=== PATIENT | female | born 1945 | race Caucasian/White ===

== ENCOUNTER 2017-10-06 14:58 | Outpatient (CLI) | payer MEDICARE | END 2017-10-06 14:59 | disposition home or self-care (01) | LOC: BICMAMMO 14:58 | PROVIDERS: ATTEND Obstetrics & Gynecology | DX: Z12.31 Encounter for screening mammogram for malignant neoplasm of breast (principal) | CPT/HCPCS: 77063; 77067 ==

== ENCOUNTER 2017-10-13 19:03 | Inpatient (IN) | payer MEDICARE ==
[2017-10-13 20:10] LABS: #Eosinphils 0.4 thou/uL (0.0-0.7); #Lymphocytes 1.3 thou/uL (1.20-3.40); #Monocytes 0.4 thou/uL (0.11-0.59); #Neutrophils 2.9 thou/uL (1.40-6.50); %Basophils 0.9 % (0.0-1.0); %Eosinophils 7.1 % (0.0-10.0); %Lymphocytes 25.8 % (21.0-51.0); %Neutrophils 58.2 % (42.0-75.0); Hemoglobin 12.6 g/dL (12.0-16.0); Mean Corpuscular Hemoglobin 30.9 pg (27.0-31.0); Mean Corpuscular Volume 88.3 fL (78.0-98.0); Mean Platelet Volume 6.1 fL (7.4-10.4); Platelet Count 249 thou/uL (130-400); RBC Distribution Width 11.5 % (11.5-14.5); Red Blood Cell (RBC) Count 4.06 mill/uL (4.20-5.40)
[2017-10-13 20:38] LABS: CKMB 1.5 ng/mL (0-6.6); Troponin I 0.011 ng/mL (< 0.028)
--- NOTE | 2017-10-13 20:42 | RAD ---
CHEST ONE VIEW 10/13/17 HISTORY: Bradycardia. COMPARISON: Chest radiograph 2014. FINDINGS: The heart size is enlarged. There is mild ectasia of the distal thoracic aorta, similar. Partially ca lcified breast implants. No pneumothorax or focal air space consolidation. IMPRESSION: No acute intrathoracic abnormality or significant change. POS: [facility]
[2017-10-13 20:43] LABS: ALT (SGPT) 10 U/L (8-55); AST (SGOT) 16 U/L (5-34); Albumin 4.1 g/dL (3.4-4.8); Alkaline Phosphatase 85 U/L (40-150); Anion Gap 15 mmol/L (10-20); BUN (Urea Nitrogen) 17 mg/dL (9.8-20.1); Bilirubin, Total 0.3 mg/dL (0.2-1.2); CK (CPK) 137 U/L (29-168); Calc. Creatinine Clearance 0 mL/min (70-130); Calcium 9.2 mg/dL (7.8-10.44); Carbon Dioxide 25 mmol/L (23-31); Chloride 105 mmol/L (98-107); Estimated GFR-MDRD 64; Glucose 91 mg/dL (83-110); Lipase 36 U/L (8-78); Potassium 3.9 mmol/L (3.5-5.1); Protein, Total 7.1 g/dL (6.0-8.3); Sodium 141 mmol/L (136-145)
[2017-10-13] MEDS ORDERED: Acetaminophen 325 MG TAB PO PRN (22:58)
[2017-10-13] MEDS ORDERED: Ondansetron HCl/PF 4 MG/2 ML Vial IVP PRN (23:40)
[2017-10-13] MEDS ORDERED: Ondansetron ODT 4 MG TAB SL PRN (23:40)
[2017-10-13 23:49] LABS: Troponin I 0.014 ng/mL (< 0.028)
[2017-10-14 01:53] VITALS: BMI 26.5
[2017-10-14 02:25] LABS: #Eosinphils 0.3 thou/uL (0.0-0.7); #Lymphocytes 1.3 thou/uL (1.20-3.40); #Monocytes 0.4 thou/uL (0.11-0.59); #Neutrophils 2.7 thou/uL (1.40-6.50); %Eosinophils 6.7 % (0.0-10.0); %Lymphocytes 27.8 % (21.0-51.0); %Monocytes 7.6 % (0.0-10.0); %Neutrophils 56.9 % (42.0-75.0); Hemoglobin 12.3 g/dL (12.0-16.0); Mean Corpuscular HGB CONC 34.2 g/dL (32.0-36.0); Mean Corpuscular Hemoglobin 30.2 pg (27.0-31.0); Mean Corpuscular Volume 88.3 fL (78.0-98.0); Mean Platelet Volume 6.2 fL (7.4-10.4); Platelet Count 231 thou/uL (130-400); RBC Distribution Width 11.5 % (11.5-14.5); Red Blood Cell (RBC) Count 4.08 mill/uL (4.20-5.40); White Blood Cell (WBC) Count 4.7 thou/uL (4.8-10.8)
--- NOTE | 2017-10-14 02:25 | HP ---
TIME OF EVALUATION: 10:10 p.m. CODE STATUS: FULL CODE. PRIMARY CARE PHYSICIAN: Dr. Kalia Toro. CHIEF COMPLAINT: "Feeling tired, got a call from the Holter monitor center that my heart rate was low." HISTORY OF PRESENT ILLNESS: This is a 71-year-old female with past medical history of atrial fibrillation, status post ablation, the patient is on anticoagulation, came to the hospital because she had been placed on a Holter monitor by Dr. Erickson, today was her first day, she got a call from the Holter monitor center, telling her that her heart rate was in the low 50s. For that reason, she was advised to come to the hospital by Dr. Erickson's PA. The patient was met at bedside, and she reported associated weakness, no other significant symptoms. No clear triggers, no alleviating factors. She has stated that in the past they had been evaluated in the possibility of having the pacemaker placed. The patient reported the symptoms were mild to moderate. REVIEW OF SYSTEMS: Constitutional: No fever, no chills. She did report generalized weakness. Respiratory: No cough, sputum production, shortness of breath. Cardiovascular: No chest pain, palpitations, shortness of breath. Gastrointestinal: No nausea or vomiting, no diarrhea, no abdominal pain.: Central Nervous Systems: No dizziness, headache or feeling lightheaded. Genitourinary: No burning on urination. Extremities: No leg swelling. All other systems were reviewed and negative except for the findings mentioned above. PAST MEDICAL HISTORY: Atrial fibrillation, status post ablation, hyperlipidemia. PAST SURGICAL HISTORY: Bilateral knee, right heel surgery x2, appendectomy, C- sections. PSYCHIATRIC HISTORY: No previous psychiatric history. SOCIAL HISTORY: No alcohol, no drugs, no smoking history. FAMILY HISTORY: The patient reportedly mother with an AAA, father from nephritis. ALLERGIES: No known drug allergies. REPORTED MEDICATIONS: Xarelto 20 mg once a day, amlodipine 5 mg once a day, Zetia 10 mg once a day. PHYSICAL EXAMINATION: VITAL SIGNS: On presentation, blood pressure 129/77, heart rate 65, respiratory rate was 16, temperature was 99.7, pain was 0, oxygen saturation was 95. GENERAL APPEARANCE: Patient is alert, oriented, no acute distress. HEENT: Eyes, normal conjunctivae. Moist oral mucosa. Eyes anicteric. NECK: No JVD. RESPIRATORY: Bilateral air entry. No rales, no wheezing. Symmetric expansion. CARDIOVASCULAR: Normal rate, regular rhythm. No murmurs, no gallop. No edema. ABDOMEN: Soft, normal bowel sounds. MUSCULOSKELETAL: Baseline range of motion and strength. No tenderness. SKIN: Warm and intact. No pallor, no rash, no redness. NEUROLOGIC: Baseline sensorium. No evidence of any new focal weakness. Baseline speech. Cranial nerves seem to be intact. PSYCHIATRIC: Good mood. No anxiety. Oriented, optimal, judgment. LABORATORY DATA: Reviewed. The patient has a white count of 5.0, hemoglobin 12.6, MCV 88, platelet count 249,000. Sodium 141, potassium 3.9, carbon dioxide 25, anion gap 15, BUN 17, creatinine 0.8, GFR 64. LFTs were normal. Troponin was normal. X-ray was reviewed. The patient had no acute intrathoracic abnormalities or significant change. EKG was discussed with former physician from ER showed first degree AV block at a rate of 69, nonspecific ST segment abnormalities, prolonged QTC. ASSESSMENT AND PLAN: The patient was placed in the hospital with following medical condition. 1. Sinus bradycardia, as reported in the Holter monitor, in the hospital, heart rate has been normal, Dr. Erickson has been notified, we will follow, the patient reported that she has had in the past to have a pacemaker, we will defer any decision on this to Dr. Erickson. The patient was on anticoagulation that we will continue for now. 2. History of atrial fibrillation with status post ablation, rate controlled, rhythm is sinus, we will monitor, no need for any further intervention at this point. Anticoagulation. 3. Hyperlipidemia, low cholesterol diet is advised. 4. Deep venous thrombosis prophylaxis, patient is on chronic anticoagulation. [facility]
[2017-10-14 02:42] LABS: Anion Gap 10 mmol/L (10-20); BUN (Urea Nitrogen) 16 mg/dL (9.8-20.1); Calc. Creatinine Clearance 79 mL/min (70-130); Calcium 9.3 mg/dL (7.8-10.44); Carbon Dioxide 27 mmol/L (23-31); Chloride 108 mmol/L (98-107); Estimated GFR-MDRD 72; Glucose 97 mg/dL (83-110); Sodium 141 mmol/L (136-145)
[2017-10-14 02:43] LABS: Troponin I Less than 0.010 ng/mL (< 0.028)
[2017-10-14] MEDS ORDERED: Aspirin 325 mg Enteric Coated Tablet PO SCH (09:00)
[2017-10-14] MEDS ORDERED: Rivaroxaban 10 MG TAB PO SCH (09:00)
[2017-10-14] MEDS: Aspirin 325 mg Enteric Coated Tablet PO SCH (10:24)
[2017-10-14] MEDS ORDERED: DOBUTamine 500 mg/250 ml 250 ML IVPB SCH (17:30)
[2017-10-14] MEDS ORDERED: Communication Order-Pharmacy FS SCH (17:30)
--- NOTE | 2017-10-14 17:45 | PDOC.PN ---
- Subjective Encounter Start Date: 10/14/17 Encounter Start Time: 17:45 Subjective: f/u for symptomatic bradycardia and heart block with pauses. Not currently -: symptomatic though tele monitor showing pauses up to 3+ secs. - Objective MAR Reviewed: Yes Vital Signs & Weight: Vital Signs (12 hours) Temp Pulse Resp BP Pulse Ox 10/14/17 16:12 97.7 F 62 16 133/72 10/14/17 11:45 98.2 F 65 16 139/73 97 10/14/17 08:15 98.7 F 58 L 16 97 10/14/17 07:51 98.7 F 58 L 16 131/91 H 97 Weight Weight 169 lb 4.8 oz I&O: 10/13/17 10/14/17 10/15/17 06:59 06:59 06:59 Intake Total 720 Output Total 400 Balance 320 Result Diagrams: 10/14/17 02:11 10/14/17 02:11 Additional Labs: Laboratory Tests 10/13/17 10/13/17 10/13/17 20:01 20:01 23:14 Troponin I 0.011 0.014 B-Natriuretic Peptide 57.7 10/14/17 02:11 Troponin I Less than 0.010 B-Natriuretic Peptide Radiology Reviewed by me: Yes (PCXR - no acute process) EKG Reviewed by me: Yes (Tele - SR with pauses 2-3 seconds) Phys Exam - Physical Examination Constitutional: NAD HEENT: PERRLA, sclera anicteric, oral pharynx no lesions Neck: no nodes, no JVD, supple, full ROM Respiratory: no wheezing, no rales, no rhonchi, clear to auscultation bilateral Gastrointestinal: soft, non-tender, no distention, positive bowel sounds Musculoskeletal: no edema, pulses present Neurological: non-focal, normal sensation, moves all 4 limbs Psychiatric: normal affect, A&O x 3 Skin: no rash, normal turgor, cap refill <2 seconds Dx/Plan (1) Symptomatic bradycardia Code(s): R00.1 - BRADYCARDIA, UNSPECIFIED Status: Acute Comment: Hold all AV blocking agents, B-blockers, plan for PM placement in am, trial Dobutamine (2) Heart block Code(s): I45.9 - CONDUCTION DISORDER, UNSPECIFIED Status: Chronic Comment: See above (3) Chronic anticoagulation Code(s): Z79.01 - ELECTRICAL LABORATORY TECHNICIAN (CURRENT) USE OF ANTICOAGULANTS Status: Chronic Comment: Xarelto on hold pending PM placement and L heart cath (4) HTN (hypertension) Code(s): I10 - ESSENTIAL (PRIMARY) HYPERTENSION Status: Chronic Qualifiers: Hypertension type: essential hypertension Qualified Code(s): I10 - Essential (primary) hypertension Comment: Stable currently - Plan DVT proph w/SCDs Continue supportive mgmt -: Trial Dobutamine gtt -: Hold all B-blockers, AV antonio blocking agents -: Hold Xarelto -: 2D echo pending * PM placement in am
[2017-10-14] MEDS ORDERED: CEFAZOLIN/Water 2 GM/20 ML SYRINGE SLOW IVP SCH (18:15)
[2017-10-14] MEDS: Ezetimibe 10 MG TAB PO SCH (20:48)
--- NOTE | 2017-10-14 23:01 | CON ---
DATE OF CONSULTATION: 10/14/2017 HISTORY: Keely Renee is a 71-year-old white female who has been evaluated by Dr. Erickson in the past. She was first seen in 2009 and had normal stress test and echo ejection fraction was normal. She had moderate aortic and mitral valve regurgitation. She then presented to the hospital in 09/2013 with feeling of very rapid heartbeat. She went to the gym to work out and her heart rate was 180 beats per minute. She became short of breath and lightheaded with this. She came to the emergency and was given intravenous diltiazem and 15-20 minutes later converted back to sinus rhythm. She also had some pauses up to 4 seconds. She was placed on Xarelto and Cardizem p.o. Echo at that time revealed mild to moderate aortic insufficiency and ejection fraction of 60%-65% . 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 She was discharged in several days later, underwent pulmonary venous isolation and antral ablation for atrial fibrillation. She has not had any recurrence of her atrial fibrillation, although she is maintained on Xarelto. She states that she did have a syncopal episode one year ago, underwent outpatient monitoring apparently without any significant rhythm disturbances being seen. She was going to undergo ankle replacement and preop EKG showed new T-wave inversions in lead 3, V5 and V6, although it is very bad faxed copy. With this abnormality, she was sent back to Dr. Erickson's office. She had a previous Lexiscan Cardiolite test in 12/2016 which was normal without evidence of ischemia. However, with this new EKG finding, there was concern of ischemia. It was also noted that she would have sinus arrest with junctional escape beat. She was sent home on a monitor and there have been several episodes recorded where she would have pauses of over 3 seconds. With these pauses, she was advised to go to the hospital by Dr. Dre Zaldivar's PA. Ms. Renee denies any episodes of chest discomfort. However, she has noted over the last several months that she has been becoming increasingly fatigued. She also will have dyspnea on exertion walking or going up stairs, but she never had that problem previously. She denies any significant lightheaded episodes and only the one episode of syncope 1 year ago. PAST MEDICAL HISTORY: Atrial fibrillation status post ablation in 09/2013, hyperlipidemia, hypertension. OPERATIONS: Bilateral knee replacement, heel surgery x2, appendectomy, C- sections, hand surgery. SOCIAL HISTORY: She does not smoke. She occasionally drinks. FAMILY HISTORY: Mother had an abdominal aortic aneurysm and of rupture. No family history of coronary artery disease. MEDICATIONS: Norvasc 5 mg daily, Zetia 10 mg q.p.m., Xarelto 20 mg daily (last dose was 10/12/2017 in the evening). ALLERGIES: None. REVIEW OF SYSTEMS: Twelve-point review of systems unremarkable. PHYSICAL EXAMINATION: VITAL SIGNS: 139/73, pulse 65. HEENT: PERRL. NECK: Supple. CHEST: Clear. CARDIAC: S1, S2 normal without any S3, S4 or murmurs. ABDOMEN: Normal bowel sounds without tenderness, organomegaly. EXTREMITIES: Revealed no clubbing, cyanosis or edema. NEUROLOGIC: Grossly intact. SKIN: Warm and dry. IMPRESSION: 1. New T-wave inversion on EKG at [facility]. This was not seen on an EKG in our office nor on admission EKG here. She did have a normal Lexiscan Cardiolite in 12/2016. 2. Severe sinus node dysfunction with episodes of sinus arrest with junctional escape beat. She has had pauses of over 3.4 seconds on the monitor here in the hospital. She also had a syncopal episode one year ago. She denies any lightheadedness, but has had increasing fatigue and tiredness. 3. History of atrial fibrillation ablation in 09/2013 without recurrence. 4. Hypertension. 5. Hypercholesterolemia. 6. Aortic insufficiency and mitral regurgitation on echos in the past. PLAN: The situation was discussed with the patient and her daughter. With preoperative evaluation and new EKG changes, it was recommended she undergo cardiac catheterization. Risks of this were discussed including , myocardial infarction, dye reaction, vascular injury, CVA, transfusion, limb loss, renal loss, etc. Also, risk of intervention with PTCA and stent placement were discussed including , myocardial infarction, emergent CABG, restenosis, stent thrombosis, vessel perforation, etc. With long-term use of Xarelto, I would recommend a bare metal stent to minimize the amount of time for triple antiplatelet - anticoagulant therapy. She has never had any gastrointestinal bleeding and does not have any upcoming surgery except for her ankle surgery. If she does not have significant coronary artery disease or if a stent is placed , then the following day, consideration should be given to pacemaker placement. Risks of pacemaker placement were discussed including , infection, bleeding, blood clot formation, pneumothorax, internal bleeding with surgical drainage, reoperation for lead dislodgement, etc. She understands and is agreeable to proceed. [facility]ANY
[2017-10-15] MEDS: Aspirin 325 mg Enteric Coated Tablet PO SCH (05:30)
[2017-10-15] MEDS ORDERED: Sodium Chloride 0.9% 1,000 ML IV SCH ×2 (06:00→12:24)
--- NOTE | 2017-10-15 07:44 | EKG ---
Test Reason : PAUSES Blood Pressure : / mmHG Vent. Rate : 047 BPM Atrial Rate : 047 BPM P-R Int : 236 ms QRS Dur : 096 ms QT Int : 494 ms P-R-T Axes : 034 -08 076 degrees QTc Int : 437 ms Sinus bradycardia with marked sinus arrhythmia with 1st degree A-V block and sinus arrest Nonspecific ST and T wave abnormality Abnormal ECG When compared with ECG of 13-OCT-2017 19:09, (Unconfirmed) QT has shortened Confirmed by DR. Flory CAMPOVERDE ([id number]) on 10/15/2017 7:44:01 AM Referred By: CRICKET Confirmed By:DR. Flory CAMPOVERDE
[2017-10-15] MEDS ORDERED: Diltiazem HCl 125 MG, Admixture Fee 1 EACH in Sodium Chloride 0.9% 100 ML IVPB SCH (09:30)
[2017-10-15] MEDS ORDERED: Heparin 10,000 UNITS/1 ML VIAL ONE (09:46)
[2017-10-15] MEDS ORDERED: Lidocaine 1% (PF) 30 ML VIAL ONE ×3 (09:46→11:16)
[2017-10-15] MEDS ORDERED: Fentanyl 100 MCG/2 ML VIAL ONE ×2 (10:17→10:54)
[2017-10-15] MEDS ORDERED: Midazolam HCl 2 mg/2 ml Vial ONE (10:17)
[2017-10-15] MEDS ORDERED: Metoprolol Tartrate 5 MG/5 ML VIAL ONE (10:52)
[2017-10-15] MEDS ORDERED: PROPOFOL 20 ML ONE (10:54)
[2017-10-15] MEDS ORDERED: CEFAZOLIN 1 GM VIAL ONE (11:03)
[2017-10-15] MEDS ORDERED: Gentamicin 80 MG/2 ML VIAL ONE (11:03)
[2017-10-15] MEDS ORDERED: Nitroglycerin 0.4 MG TAB (25 Tab Bottle) SL PRN (12:23)
[2017-10-15] MEDS ORDERED: traMADol HCl 50 MG TAB PO PRN (12:23)
[2017-10-15] MEDS ORDERED: Acetaminophen/Codeine 30-300mg Tablet PO PRN ×2 (12:23)
[2017-10-15] MEDS ORDERED: Sodium Chloride 0.9% 200 ML IV SCH (12:30)
[2017-10-15] MEDS ORDERED: Iopamidol 370 76% 100 ML VIAL ONE (13:02)
--- NOTE | 2017-10-15 13:34 | RAD ---
SINGLE VIEW CHEST: Date: 10/15/17 COMPARISON: 10/13/17. HISTORY: Post cardiac device placement. FINDINGS: Single view of the chest shows a normal sized cardiomediastinal silhouette. There has been interval p lacement of a left subclavian pacemaker with its leads in the right atrium and ventricle. A moderate left pneumothorax is seen. No pleural effusion is present. Patient has calcified bilateral breast implants. IMPRESSION: Interval placement of left-sided pacemaker with moderate left pneumothorax. Dr. Juarez's nurse, Anastacio, notified of findings at 1330 hours on 10/15/17. CODE CR. POS: [facility]
[2017-10-15] MEDS: Cephalexin 250 MG CAP PO SCH ×2 (14:51→19:56)
--- NOTE | 2017-10-15 16:29 | CCL ---
INDICATION: Four and five second sinuses pauses. History of sick sinus syndrome. The patient remained in the offset label rewinder after diagnostic catheterization. The left subclavian area was prepped and draped. 1% lidocaine was infiltrated. A J-wire was placed into the left subclavian vein . Pacemaker pocket was manufactured using blunt and sharp dissection with electrocautery for hemosta sis. Antibiotic solution soaked gauze was placed into the subcutaneous pocket. A second J-wire was inserted. Using peel-away sheaths, the atrial and ventricular leads were inserted. The ventricular lead was advanced to the RV apex and screwed into place. This is then tested and then the atrial kaci d was screwed into the right atrium. At this point, the patient was sedated by Anesthesia and with 100 joules of synchronized cardioversio n, remained in atrial fibrillation. With 200 joules of synchronized cardioversion, she converted to sinus rhythm. Ventricular lead - R-wave 10.6, impedance 658. Threshold 0.3 volts. Right atrial lead P-wave (afte r cardioversion) 4.8, impedance 635, threshold 0.8. The tabs on the suture tie downs were removed a nd both leads were secured in place with two sutures of 0 silk. The subcutaneous pocket was irrigate d after the antibiotic solution soaked gauze was removed. Copious amounts of antibiotic solution wer e used. The leads were then attached to the pacemaker generator and this was placed into the pocket and secured in place with one suture of 0 silk. Incision was then closed using two layers of running 3-0 Vicryl, one layer running 4-0 Vicryl. Dermabond was placed on the incision. The patient tolera tony the procedure well.
--- NOTE | 2017-10-15 16:42 | PDOC.PN ---
- Subjective Encounter Start Date: 10/15/17 Encounter Start Time: 16:30 Subjective: f/u for A-fib RVR and sinus pauses/heart block s/p cardioversion -: and PM placement today. Tele showing SR currently. Feels ok except -: for L shoulder and upper chest pain at PM site. - Objective MAR Reviewed: Yes Vital Signs & Weight: Vital Signs (12 hours) Temp Pulse Resp BP Pulse Ox 10/15/17 14:53 97.6 F 64 16 154/72 H 98 10/15/17 12:56 98.6 F 75 18 142/72 H 94 L 10/15/17 08:09 98.0 F 63 16 135/63 95 Weight Weight 169 lb 4.8 oz I&O: 10/14/17 10/15/17 10/16/17 06:59 06:59 06:59 Intake Total 870 Output Total 1200 Balance -330 Result Diagrams: 10/14/17 02:11 10/14/17 02:11 Additional Labs: Laboratory Tests 10/13/17 10/13/17 10/13/17 20:01 20:01 23:14 Troponin I 0.011 0.014 B-Natriuretic Peptide 57.7 10/14/17 02:11 Troponin I Less than 0.010 B-Natriuretic Peptide Radiology Reviewed by me: Yes (PCXR - mod L-sided pneumothorax) EKG Reviewed by me: Yes (Tele - SR, A-paced) Phys Exam - Physical Examination Constitutional: NAD HEENT: PERRLA, sclera anicteric, oral pharynx no lesions Neck: no nodes, no JVD, supple, full ROM L upper chest with post-surgical changes with PM Respiratory: no wheezing, no rales, no rhonchi, clear to auscultation bilateral S1, S2 Cardiovascular: RRR, no significant murmur, no rub, gallop Gastrointestinal: soft, non-tender, no distention, positive bowel sounds Musculoskeletal: no edema, pulses present Neurological: non-focal, normal sensation, moves all 4 limbs Psychiatric: normal affect, A&O x 3 Skin: no rash, normal turgor, cap refill <2 seconds Dx/Plan (1) Symptomatic bradycardia Code(s): R00.1 - BRADYCARDIA, UNSPECIFIED Status: Acute Comment: Hold all AV blocking agents, B-blockers, plan for PM placement in am, trial Dobutamine, resolved s/p PM placement (2) Heart block Code(s): I45.9 - CONDUCTION DISORDER, UNSPECIFIED Status: Chronic Comment: See above, s/p dual chamber pacemaker placement 10/15/17, continue tele monitoring (3) Chronic anticoagulation Code(s): Z79.01 - CHIEF SUBSTATION OPERATOR (CURRENT) USE OF ANTICOAGULANTS Status: Chronic Comment: Xarelto on hold pending PM placement and L heart cath, resume on (4) Pneumothorax, left Code(s): J93.9 - PNEUMOTHORAX, UNSPECIFIED Status: Acute Comment: s/p PM placement and cardioversion, serial monitoring, serial PCXR, no hypoxia or dyspnea currently, conservative mgmt (5) HTN (hypertension) Code(s): I10 - ESSENTIAL (PRIMARY) HYPERTENSION Status: Chronic Qualifiers: Hypertension type: essential hypertension Qualified Code(s): I10 - Essential (primary) hypertension Comment: Stable currently - Plan DVT proph w/SCDs Stable overall -: Continue Tele monitoring -: Serial PCXR -: Toradol 30mg IV q6h prn chest pain -: AM lab: Lipid profile * PCXR in am
[2017-10-15] MEDS: Ketorolac Tromethamine 30 MG/ML VIAL IVP SCH (17:23)
--- NOTE | 2017-10-15 18:12 | CON ---
DATE OF CONSULTATION: 10/15/2017 DATE OF ADMISSION: 10/13/2017 REASON FOR CONSULTATION: Evaluate patient with left-sided pneumothorax post-pacemaker placement. HISTORY OF PRESENT ILLNESS: Ms. Renee is a 71-year-old woman who was in the hospital with symptomati c bradycardia. She underwent pacemaker placement today and feels much better from a heart rate stand point. Post-pacemaker placement, chest x-ray shows a small apical left pneumothorax. She is current ly asymptomatic. She is on no oxygen. She has oxygen saturations that are in the upper 90s. PAST MEDICAL HISTORY: 1. Atrial fibrillation, status post ablation in 2013. 2. Hyperlipidemia. 3. Hypertension. PAST SURGICAL HISTORY: 1. Bilateral knee replacement. 2. Heel surgery x2. 3. Appendectomy. 4. C-sections. 5. Hand surgery. SOCIAL HISTORY: She does not use tobacco. She occasionally uses alcohol. ALLERGIES: None. CURRENT MEDICATIONS: 1. Norvasc 5 mg daily. 2. Zetia 10 mg daily. 3. Xarelto 20 mg daily, last dose was on 10/12/2017. REVIEW OF SYSTEMS: Not performed. PHYSICAL EXAMINATION: GENERAL: This is a well-developed and well-nourished woman resting comfortably, having normal discus sions with her family in the hospital room. VITAL SIGNS: Height is 5 feet 7 inches, weight 169 pounds, temperature is 98.6, pulse is 75 and regu lar, blood pressure is 142/72. LUNGS: Clear bilaterally. HEART: Rhythm is regular. ABDOMEN: Soft and nontender, without mass. EXTREMITIES: No cyanosis, clubbing or edema. ASSESSMENT AND PLAN: Small apical pneumothorax post-pacemaker placement. We will repeat a chest x-r ay tomorrow. Otherwise, symptomatic therapy.
[2017-10-15] MEDS: Ezetimibe 10 MG TAB PO SCH (19:56)
[2017-10-16] MEDS: Ketorolac Tromethamine 30 MG/ML VIAL IVP SCH ×3 (01:21→12:38)
[2017-10-16] MEDS: Aspirin 325 mg Enteric Coated Tablet PO SCH (07:45)
[2017-10-16] MEDS: Cephalexin 250 MG CAP PO SCH ×2 (07:47→14:57)
--- NOTE | 2017-10-16 09:36 | RAD ---
CHEST 1 VIEW: HISTORY: Pneumothorax. Followup. COMPARISON: 10/15/17. FINDINGS: Left pneumothorax is slightly larger than on the prior study, now with the apical pleura at the super ior margin of the posterior aspect of the left 5th rib. Infiltrate is now present at the right posterior lung base with air bronchograms. Mediastinum remain s midline. IMPRESSION: 1. Slight interval enlargement left pneumothorax. 2. New right lower lobe infiltrate. Clinical correlation regarding other signs and symptoms of righ t basilar pneumonitis is required. Findings were called to the patient's nurse, Shayy, at 0824 hours. CODE CR POS: [facility]
--- NOTE | 2017-10-16 11:28 | DIS ---
DISCHARGE DIAGNOSES: 1. Symptomatic bradycardia, status post dual-chamber pacemaker placement 10/15/2017. 2. Heart block, status post pacemaker placement. 3. Paroxysmal atrial fibrillation with rapid ventricular response, status post electrical cardiovers ion, resolved. 4. Left-sided pneumothorax status post pacemaker placement, conservative management. 5. Hypertension, stable. 6. Hyperlipidemia. CONSULTATIONS: Dr. Juarez with Cardiology Service. Dr. Levi Chavez with Cardiothoracic Surgery Service. PERTINENT LABORATORY AND X-RAY FINDINGS: Complete metabolic profile within normal limits. Troponin I negative x2. BNP 58, total cholesterol 200, triglycerides 55, HDL 67, LDL 122. CBC showed a white blood cell count ranging between 4.7-5.0. Portable chest x-ray dated 10/13/2017 showed no acute cardiopulmonary process. A 2D transthoracic ec hocardiogram dated 10/15/2017 showed ejection fraction of 55-60%. Moderate mitral and aortic valve r egurgitation. Portable chest x-ray dated 10/15/2017 showed moderate left-sided pneumothorax with int erval placement of left-sided pacemaker device. Portable chest x-ray dated 10/16/2017 showed apical pneumothorax similar in size to previous imaging 10/15/2017. HOSPITAL COURSE: The patient was admitted after presenting with generalized weakness and recent Issa er monitor showing bradycardia with sinus pauses. The patient was placed on telemetry monitoring and noted with 3-4 second pauses concerning for symptomatic bradycardia. The patient was placed on a tr ial of dobutamine with overall increased heart rate. However, the patient developed atrial fibrillat ion with rapid ventricular response requiring electrical cardioversion. The patient also was evaluat ed by the Cardiology service and deemed appropriate candidate undergoing pacemaker placement on 10/15. The patient developed a left-sided pneumothorax post-pacemaker placement; however, no specifi c intervention was recommended after the patient was evaluated by the Cardiothoracic Surgery Service. The patient was monitored for approximately 24 hours, showing no evidence of hypoxemia, tachypnea o r respiratory distress. The patient has been ambulatory without assistance or difficulty, tolerating regular oral intake, and voiding appropriately. I have examined the patient at the time of discharg e and discussed pertinent followup instructions. The patient verbalized understanding and agreement and ready for discharge on 10/16/2017. DISCHARGE MEDICATIONS: 1. Norvasc 5 mg 1 tab p.o. daily. 2. Lipitor 20 mg 1 tablet p.o. daily. 3. Keflex 250 mg p.o. t.i.d. x5 days. 4. Zetia 10 mg p.o. at bedtime. 5. Ibuprofen 800 mg p.o. t.i.d. p.r.n. pain. 6. Xarelto 20 mg p.o. daily, resume on 10/19/2017. FOLLOWUP: The patient may follow up with her primary care provider, Dr. Vin Toro within 7 days of gio keller. Patient will follow up with Dr. Eulogio Erickson with [facility] and to call his office for appointment time and date. SPECIAL INSTRUCTIONS: Recommend repeat portable chest x-ray on 10/19/2017 to assess resolution of le ft-sided pneumothorax. CONDITION ON DISCHARGE: Stable. ACTIVITY: Ad krissy. DIET: Heart healthy. CODE STATUS: Full. DISPOSITION: Home on 10/16/2017. Total time preparing and coordinating discharge was 34 minutes.
[2017-10-16 14:59] VITALS: BP 121/66; TEMP 98.1
== END 2017-10-16 15:07 | disposition home or self-care (01) | DRG 243 ==
LOC: ERS 19:03 → 2NO 23:35
PROVIDERS: ADMIT Hospitalist; ATTEND Hospitalist
PROC: 4A023N7 Measurement of Cardiac Sampling and Pressure, Left Heart, Percutaneous Approach (ICD-10-PCS; principal; 2017-10-15)
PROC: 0JH606Z Insertion of Pacemaker, Dual Chamber into Chest Subcutaneous Tissue and Fascia, Open Approach (ICD-10-PCS; 2017-10-15)
PROC: 02H63JZ Insertion of Pacemaker Lead into Right Atrium, Percutaneous Approach (ICD-10-PCS; 2017-10-15)
PROC: B2111ZZ Fluoroscopy of Multiple Coronary Arteries using Low Osmolar Contrast (ICD-10-PCS; 2017-10-15)
PROC: B2151ZZ Fluoroscopy of Left Heart using Low Osmolar Contrast (ICD-10-PCS; 2017-10-15)
PROC: 02HK3JZ Insertion of Pacemaker Lead into Right Ventricle, Percutaneous Approach (ICD-10-PCS; 2017-10-15)
DX: I48.0 Paroxysmal atrial fibrillation (principal); J95.811 Postprocedural pneumothorax; I45.9 Conduction disorder, unspecified; Z79.01 Long term (current) use of anticoagulants; E78.5 Hyperlipidemia, unspecified; I10 Essential (primary) hypertension; T44.5X5A Adverse effect of predominantly beta-adrenoreceptor agonists, initial encounter; Z96.653 Presence of artificial knee joint, bilateral; E78.00 Pure hypercholesterolemia, unspecified; I35.1 Nonrheumatic aortic (valve) insufficiency; I34.0 Nonrheumatic mitral (valve) insufficiency; I25.10 Atherosclerotic heart disease of native coronary artery without angina pectoris
CPT/HCPCS: 33208; 36415; 71045; 80048; 80053; 80061; 82553; 83690; 83880; 84484; 85025; 85347; 92960; 93005; 93010; 93306; 93458; 93567; 93798; 96360; 99152; 99153; A4216; C1769; C1785; C1898; J0690; J1250; J1580; J1644; J1885; J2001; J2250; J2704; J3010; J7050; J7070

== ENCOUNTER 2017-10-20 10:00 | Outpatient (CLI) | payer MEDICARE | END 2017-10-20 10:01 | disposition home or self-care (01) | LOC: BICRAD 10:00 | PROVIDERS: ATTEND Internal Medicine | DX: J93.9 Pneumothorax, unspecified (principal) | CPT/HCPCS: 36415; 71045; 81003; 81015; 87086; 88112 ==

== ENCOUNTER 2017-10-29 14:41 | Outpatient (CLI) | payer MEDICARE | END 2017-10-29 14:42 | disposition home or self-care (01) | LOC: BICRAD 14:41 | PROVIDERS: ATTEND Physician Assistant | DX: J95.811 Postprocedural pneumothorax (principal) | CPT/HCPCS: 71046 ==

== ENCOUNTER 2017-11-16 10:48 | Outpatient (CLI) | payer MEDICARE | END 2017-11-16 10:49 | disposition home or self-care (01) | LOC: BICRAD 10:48 | PROVIDERS: ATTEND Physician Assistant | DX: J93.9 Pneumothorax, unspecified (principal); I77.810 Thoracic aortic ectasia; Z95.0 Presence of cardiac pacemaker | CPT/HCPCS: 71045 ==

== ENCOUNTER 2018-02-15 11:29 | Outpatient (CLI) | payer MEDICARE ==
--- NOTE | 2018-02-15 15:55 | MRI ---
LEFT HUMERUS MRI WITHOUT IV CONTRAST: HISTORY: A 72-year-old female with a history of left humerus pain, M79.622. The patient has had pain since a fall 5 weeks ago. FINDINGS: The shoulder is included in this study but not protocol for rotator cuff injury. There is fluid in t he subacromial subdeltoid bursa and evidence for a full-thickness supraspinatus tear which, if that i s a clinical concern, then a followup left shoulder MRI should be considered for further assessment. There is no evidence for soft tissue fluid or fat stranding. No intramuscular mass or abnormal sign al. No abnormal marrow signal within the humerus other than some incidental red marrow reconversion. IMPRESSION: No significant abnormality involving the humerus or upper arm. Evidence for incidental humeral red m arrow reconversion. Evidence for full-thickness supraspinatus rotator cuff tear. No evidence for ot her significant abnormality. POS: LATISHA
== END 2018-02-15 11:30 | disposition home or self-care (01) ==
LOC: MRI 11:29
PROVIDERS: ATTEND Family Medicine Sports Medicine
DX: M79.622 Pain in left upper arm (principal); M75.102 Unspecified rotator cuff tear or rupture of left shoulder, not specified as traumatic

== ENCOUNTER 2018-11-09 13:35 | Outpatient (CLI) | payer MEDICARE ==
[~2018-11-09 13:35] MED LIST: Iopamidol 370 76% 100 ML VIAL ONE
--- NOTE | 2018-11-09 15:16 | CT ---
CT ANGIOGRAM THORAX WITH IV CONTRAST AND 3D RECONSTRUCTIONS: 11/09/18 HISTORY: Follow-up thoracic aortic aneurysm. COMPARISON: 12/05/15 and 11/07/14. There is persistent ectasia of the ascending thoracic aorta with greatest dimension of 4.3 cm unchang ed in size compared to prior exams. The descending thoracic aorta is normal in caliber measuring 2.9 cm in maximal dimensions. There is no evidence of an aortic dissection. A dual lead left subclavian cardiac pacemaking device is now noted in place. The heart is mildly enla rged with dilatation of what appears to be of all cardiac chambers. There is dependent atelectasis. No pulmonary nodule, mass, or pleural effusion is identified. Again noted are peripherally calcified bilateral breast prostheses. Left hepatic lobe cyst is again present. Degenerative changes are noted in the spine. CTA thorax is stable compared to prior studies in 2015 and 2016. IMPRESSION: 1. Stable ectasia of the ascending thoracic aorta. 2. Mild cardiomegaly with interval placement of left subclavian cardia pacemaking device. POS: ASAEL
== END 2018-11-09 13:36 | disposition home or self-care (01) ==
LOC: BICCT 13:35
PROVIDERS: ATTEND Internal Medicine Cardiovascular Disease
DX: I71.2 Thoracic aortic aneurysm, without rupture (principal); I77.810 Thoracic aortic ectasia; I51.7 Cardiomegaly; Z95.0 Presence of cardiac pacemaker
CPT/HCPCS: 71275; 82565; Q9967

== ENCOUNTER 2018-11-15 08:10 | Outpatient (CLI) | payer MEDICARE ==
--- NOTE | 2018-11-15 08:46 | MMO ---
Bilateral MAMMO Bilat Screen [facility]. CLINICAL HISTORY: Patient is 72 years old and is seen for screening. The patient has no family history of breast cancer. The patient has no personal history of cancer. The patient has a history of bilateral Implants in 1986. VIEWS: The views performed were: bilateral craniocaudal with tomosynthesis and bilateral mediolateral oblique with tomosynthesis. FILMS COMPARED: The present examination has been compared to prior imaging studies performed at [facility] on 10/06/2017, and at [facility] on 12/05/2013, 03/12/2015 and 08/07/2016. MAMMOGRAM FINDINGS: There are scattered fibroglandular densities. There are no suspicious masses, suspicious calcifications, or new areas of architectural distortion. IMPRESSION: THERE IS NO MAMMOGRAPHIC EVIDENCE OF MALIGNANCY. A ROUTINE FOLLOW-UP MAMMOGRAM IN 1 YEAR IS RECOMMENDED. THE RESULTS OF THIS EXAM WERE SENT TO THE PATIENT. ACR BI-RADS Category 1 - Negative MAMMOGRAPHY NOTE: 1. A negative mammogram report should not delay a biopsy if a dominant of clinically suspicious mass is present. 2. Approximately 10% to 15% of breast cancers are not detected by mammography. 3. Adenosis and dense breasts may obscure an underlying neoplasm. Reported by: IRIS PAK MD Electonically Signed: [id number]
== END 2018-11-15 08:11 | disposition home or self-care (01) ==
LOC: BICMAMMO 08:10
PROVIDERS: ATTEND Obstetrics & Gynecology
DX: Z12.31 Encounter for screening mammogram for malignant neoplasm of breast (principal); Z98.82 Breast implant status
CPT/HCPCS: 77063; 77067

== ENCOUNTER 2019-11-02 13:31 | Outpatient (CLI) | payer MEDICARE ==
[~2019-11-02 13:31] MED LIST changes: -Iopamidol 370 76% 100 ML VIAL ONE; +Iopamidol-370 76% 500 ML 1 ML ONE
--- NOTE | 2019-11-02 14:42 | CT ---
CT ANGIOGRAM OF THE CHEST WITH IV CONTRAST AND 3D POSTPROCESSIN11/02/19 HISTORY: Thoracic aortic aneurysm follow-up. COMPARISON: 11/09/18. Ectasia of the ascending thoracic aorta with maximum dimension of 4.3 cm is stable. The descending th oracic aorta is also stable measuring 2.9 cm. No intimal flap is seen in the well opacified thoracic aortic lumen to suggest dissection. The pulmonary artery vasculature is well opacified without filling defects to suggest pulmonary embol ism. No pleural or pericardial effusions are seen. Dependent changes are seen in the posterior lung f ields. No pneumothorax, focal areas of consolidation, or lung nodules/masses are seen. There are degenerative changes in the spine. Upper abdominal tomograms demonstrate a stable left hepa tic lobe cyst. Bilateral peripherally calcified breast prosthesis are again seen. IMPRESSION: Stable exam. Stable ectasia of the ascending thoracic aorta. POS: OFF
== END 2019-11-02 13:32 | disposition home or self-care (01) ==
LOC: BICCT 13:31
PROVIDERS: ATTEND Internal Medicine Cardiovascular Disease
DX: I71.2 Thoracic aortic aneurysm, without rupture (principal); I77.810 Thoracic aortic ectasia
CPT/HCPCS: 71275; 82565; Q9967

== ENCOUNTER 2019-12-29 13:57 | Outpatient (CLI) | payer MEDICARE ==
--- NOTE | 2019-12-29 14:50 | MMO ---
Bilateral MAMMO Bilat Screen [facility]. CLINICAL HISTORY: Patient is 74 years old and is seen for screening. The patient has no family history of breast cancer. The patient has no personal history of cancer. The patient has a history of bilateral Implants in 1986. VIEWS: The views performed were: bilateral craniocaudal with tomosynthesis and bilateral mediolateral oblique with tomosynthesis. FILMS COMPARED: The present examination has been compared to prior imaging studies performed at [facility] on 10/06/2017 and 11/15/2018, and at [facility] on 03/12/2015 and 08/07/2016. This study has been interpreted with the assistance of computer-aided detection. MAMMOGRAM FINDINGS: There are scattered fibroglandular densities. There are no suspicious masses, suspicious calcifications, or new areas of architectural distortion. IMPRESSION: THERE IS NO MAMMOGRAPHIC EVIDENCE OF MALIGNANCY. A ROUTINE FOLLOW-UP MAMMOGRAM IN 1 YEAR IS RECOMMENDED. THE RESULTS OF THIS EXAM WERE SENT TO THE PATIENT. ACR BI-RADS Category 1 - Negative MAMMOGRAPHY NOTE: 1. A negative mammogram report should not delay a biopsy if a dominant of clinically suspicious mass is present. 2. Approximately 10% to 15% of breast cancers are not detected by mammography. 3. Adenosis and dense breasts may obscure an underlying neoplasm. Reported by: YARI BRUSH MD Electonically Signed: [id number]
== END 2019-12-29 13:58 | disposition home or self-care (01) ==
LOC: BICMAMMO 13:57
PROVIDERS: ATTEND Obstetrics & Gynecology
DX: Z12.31 Encounter for screening mammogram for malignant neoplasm of breast (principal); Z98.82 Breast implant status
CPT/HCPCS: 77063; 77067

== ENCOUNTER 2021-04-09 08:33 | Outpatient (CLI) | payer MEDICARE ==
[2021-04-09] MEDS ORDERED: Iopamidol-370 76% 500 ML 1 ML ONE (09:53)
== END 2021-04-09 08:34 | disposition home or self-care (01) ==
LOC: BICCT 08:33
PROVIDERS: ATTEND Internal Medicine Cardiovascular Disease
DX: I71.2 Thoracic aortic aneurysm, without rupture (principal)
CPT/HCPCS: 71275; 82565; Q9967

== ENCOUNTER 2021-04-09 09:13 | Outpatient (CLI) | payer MEDICARE | END 2021-04-09 09:14 | disposition home or self-care (01) | LOC: BICULT 09:13 | PROVIDERS: ATTEND Urology | DX: N39.0 Urinary tract infection, site not specified (principal); N39.46 Mixed incontinence; N28.1 Cyst of kidney, acquired | CPT/HCPCS: 76770 ==

== ENCOUNTER 2021-08-13 11:19 | Outpatient (CLI) | payer MEDICARE | END 2021-08-13 11:20 | disposition home or self-care (01) | LOC: MRI 11:19 | PROVIDERS: ATTEND Orthopaedic Surgery | DX: M48.062 Spinal stenosis, lumbar region with neurogenic claudication (principal); M17.11 Unilateral primary osteoarthritis, right knee; M47.816 Spondylosis without myelopathy or radiculopathy, lumbar region; M47.817 Spondylosis without myelopathy or radiculopathy, lumbosacral region; M47.815 Spondylosis without myelopathy or radiculopathy, thoracolumbar region | CPT/HCPCS: 72148 ==

== ENCOUNTER 2023-02-12 17:00 | Outpatient (CLI) | payer OTHER | END 2023-02-12 17:01 | disposition home or self-care (01) | LOC: SLEEPLAB 17:00 | PROVIDERS: ATTEND Physician Assistant | DX: G47.33 Obstructive sleep apnea (adult) (pediatric) (principal); R53.83 Other fatigue; I51.89 Other ill-defined heart diseases; G47.69 Other sleep related movement disorders | CPT/HCPCS: 95810 ==

== ENCOUNTER 2023-06-01 16:00 | Outpatient (CLI) | payer OTHER | END 2023-06-01 16:01 | disposition home or self-care (01) | LOC: SLEEPLAB 16:00 | PROVIDERS: ATTEND Physician Assistant | DX: G47.33 Obstructive sleep apnea (adult) (pediatric) (principal); G47.61 Periodic limb movement disorder; R53.83 Other fatigue; I51.89 Other ill-defined heart diseases | CPT/HCPCS: 95811 ==

== ENCOUNTER 2024-03-15 08:57 | Outpatient (CLI) | payer OTHER | END 2024-03-15 08:58 | disposition home or self-care (01) | LOC: BICCT 08:57 | PROVIDERS: ATTEND Physician Assistant | DX: I71.20 Thoracic aortic aneurysm, without rupture, unspecified (principal); I77.810 Thoracic aortic ectasia | CPT/HCPCS: 36415; 71275; 82565 ==

== ENCOUNTER 2024-06-10 13:14 | Emergency (ER) | payer OTHER | END 2024-06-10 14:20 | disposition home or self-care (01) | LOC: ERS 13:14 | DX: S00.83XA Contusion of other part of head, initial encounter (principal); I25.10 Atherosclerotic heart disease of native coronary artery without angina pectoris; I10 Essential (primary) hypertension; I48.91 Unspecified atrial fibrillation; E78.00 Pure hypercholesterolemia, unspecified; Y93.02 Activity, running; Z95.0 Presence of cardiac pacemaker; Z79.01 Long term (current) use of anticoagulants; Z79.899 Other long term (current) drug therapy | CPT/HCPCS: 70450 ==